=== PATIENT | male | born 1985 | race Caucasian/White ===

== ENCOUNTER → 2019-08-07 12:02 | Outpatient (CLI) | payer OTHER, SELFPAY ==
--- NOTE | 2019-08-07 | DI.MRI.S_ITS ---
PROCEDURE: MR LUMBAR SPINE WO CON INDICATIONS: Dorsalgia, unspecified TECHNIQUE: Noncontrast sagittal T1 spin echo and T2 fast echo, sagittal STIR, axial T1 and T2 fast spin echo through the lumbar spine. In cases with scoliosis, additional coronal T2 fast spin echo may be performed. COMPARISON: None. FINDINGS: Image quality: Excellent. Alignment and Curvature: Assuming the vertebra with vestigial ribs is T12, there are 5 [id number] lumbar vertebrae. There is normal bony alignment. Bone Marrow: Marrow is of normal overall signal. No acute vertebral body compression fractures. Spinal Cord: Conus medullaris terminates at the T12-L1 level. Visualized cord demonstrates normal signal and size. Paraspinous Soft Tissues: No paravertebral masses. L1-L2: Normal appearance. L2-L3: Normal appearance. L3-L4: Normal appearance. L4-L5: Moderate loss of disc height and disc desiccation. There is posterior disc bulge and posterior central disc protrusion. The central canal is mildly narrowed. There is left S1 root impingement. Mild bilateral foraminal stenosis. No definitive nerve root impingement.. L5-S1: Normal appearance. IMPRESSION: 1. Degenerative disc disease at L4-L5 as described. 2. Mild central canal stenosis at L4-L5. 3. Mild bilateral foraminal stenosis at L4-L5. 4. Left S1 neural foramen impingement. Dictated by: Corin Vásquez M.D. on 08/07/2019 at 13:35 Approved by: Corin Vásquez M.D. on 08/07/2019 at 13:45
== END ==
PROVIDERS: Referring Provider Physician Assistant; Visit Provider Physician Assistant
DX: M54.9 Dorsalgia, unspecified (principal); M51.36 Other intervertebral disc degeneration, lumbar region; M48.061 Spinal stenosis, lumbar region without neurogenic claudication
CPT/HCPCS: 72148